=== PATIENT | male | born 1960 | race Two or more races ===

== ENCOUNTER 2016-07-02 12:24 | Observation (INO) | payer BC, OTHER ==
[2016-07-02 12:29] VITALS: BMI 29.0
--- NOTE | 2016-07-02 13:43 | EKG ---
Test Reason : Blood Pressure : / mmHG Vent. Rate : 066 BPM Atrial Rate : 066 BPM P-R Int : 192 ms QRS Dur : 094 ms QT Int : 424 ms P-R-T Axes : 004 016 035 degrees QTc Int : 444 ms NORMAL SINUS RHYTHM MINIMAL VOLTAGE CRITERIA FOR LVH, MAY BE NORMAL VARIANT EARLY REPOLARIZATION BORDERLINE ECG WHEN COMPARED WITH ECG OF 01-NOV-2010 09:51, QRS DURATION HAS DECREASED ST NO LONGER ELEVATED IN ANTERIOR LEADS T WAVE INVERSION NO LONGER EVIDENT IN ANTEROLATERAL LEADS Confirmed by BERYL MCCLELLAN, FLORA ([id number]) on 07/02/2016 1:42:58 PM Referred By: Confirmed By:FLORA CORDOBA MD
[2016-07-02 13:52] LABS: BASOPHIL 0.5 % (0-2.0); MCH 30.6 pg (25.7-33.7); MCHC 34.1 g/dl (32.0-35.9); MEAN CELL VOLUME 89.7 fl (80-96); MEAN PLT VOLUME 7.7 fl (7.5-11.1); NEUTROPHILS 73.3 % (42.8-82.8); PLATELET COUNT 175 K/MM3 (134-434); RDW 14.3 % (11.9-15.9); WHITE BLOOD COUNT 5.6 K/mm3 (4.0-10.0)
[2016-07-02 14:15] LABS: INR 1.05 (0.82-1.09); PROTHROMBIN TIME (PATIENT) 11.6 SEC (9.98-11.88)
[2016-07-02] MEDS ORDERED: SODIUM CHLORIDE 0.9% 1000 ML INFUS.BAG IV ONE (14:26)
--- NOTE | 2016-07-02 14:26 | PDOC ---
History of Present Illness - General History Source: Patient Exam Limitations: No Limitations <Tim Simpson - Last Filed: 07/02/16 16:53> <Janelle Baig - Last Filed: 07/02/16 19:20> - General Chief Complaint: Syncope/Near Syncope Stated Complaint: FALL Time Seen by Provider: 07/02/16 13:01 - History of Present Illness Initial Comments: 07/02/16 14:30 The patient is a 55 year old male, BIBA with a significant past medical history of HTN and HLD, who presents to the emergency department s/p syncopal fall around 11:30 today. The patient reports having a less than 5 minute of LOC in the bank earlier today. He reports just prior to the LOC being symptomatic for blurry vision and dizziness. He denies any recent fevers, chills, headache or dizziness. He denies any recent nausea, vomit, diarrhea or constipation. He denies any recent chest pain or shortness of breath. He arrives with no complaints of pain or discomfort. Allergies: NKA Past surgical history: None reported. Social History: Nonsmoker. Denies EtOH use and recreational drug use. (Tim Simpson) Past History <Tim Simpson - Last Filed: 07/02/16 16:53> - Past Medical History HTN: Yes Hypercholesterolemia: Yes - Psycho/Social/Smoking Cessation Hx Suicidal Ideation: No Smoking History: Never smoked <Janelle Baig - Last Filed: 07/02/16 19:20> - Past Medical History Allergies/Adverse Reactions: Allergies Allergy/AdvReac Type Severity Reaction Status Date / Time Fish Containing Products Allergy Verified 07/02/16 12:27 Home Medications: Ambulatory Orders Aspirin [ASA -] 81 mg PO DAILY 07/02/16 Isosorbide Mononitrate [Isosorbide Mononitrate ER] 120 mg PO DAILY 07/02/16 Labetalol HCl [Normodyne -] 300 mg PO BID 07/02/16 Nifedipine [Nifedipine ER] 60 mg PO BID 07/02/16 Rosuvastatin Calcium [Crestor] 40 mg PO DAILY 07/02/16 Review of Systems - Review of Systems Able to Perform ROS?: Yes <Tim Simpson - Last Filed: 07/02/16 16:53> <Janelle Baig - Last Filed: 07/02/16 19:20> - Review of Systems Comments:: 07/02/16 14:30 GENERAL/CONSTITUTIONAL: No fever or chills. No weakness. HEAD, EYES, EARS, NOSE AND THROAT: No change in vision. No ear pain or discharge. No sore throat. CARDIOVASCULAR: No chest pain or shortness of breath. RESPIRATORY: No cough, wheezing, or hemoptysis. GASTROINTESTINAL: No nausea, vomiting, diarrhea or constipation. GENITOURINARY: No dysuria, frequency, or change in urination. MUSCULOSKELETAL: No joint or muscle swelling or pain. No neck or back pain. SKIN: No rash NEUROLOGIC: No headache, vertigo, loss of consciousness, or change in strength/ sensation. ENDOCRINE: No increased thirst. No abnormal weight change. HEMATOLOGIC/LYMPHATIC: No anemia, easy bleeding, or history of blood clots. ALLERGIC/IMMUNOLOGIC: No hives or skin allergy. (Tim Simpson) *Physical Exam <Tim Simpson - Last Filed: 07/02/16 16:53> <Janelle Baig - Last Filed: 07/02/16 19:20> - Vital Signs Last Vital Signs Temp Pulse Resp BP Pulse Ox 98.9 F 91 H 17 110/75 98 07/02/16 19:00 07/02/16 19:00 07/02/16 19:00 07/02/16 19:00 07/02/16 19:00 - Physical Exam Comments: 07/02/16 16:30 GENERAL: Awake, alert, and fully oriented, in no acute distress HEAD: No signs of trauma EYES: PERRLA, EOMI, sclera anicteric, conjunctiva clear ENT: Auricles normal inspection, hearing grossly normal, nares patent, Moist mucosa NECK: Normal ROM, supple, JVD, or masses LUNGS: Breath sounds equal, clear to auscultation bilaterally. No wheezes, and no crackles HEART: Regular rate and rhythm, normal S1 and S2, no murmurs, rubs or gallops ABDOMEN: Soft, nontender, normoactive bowel sounds. No guarding, no rebound. No masses EXTREMITIES: Normal range of motion, no edema. No clubbing or cyanosis. No cords, erythema, or tenderness. 2+DP/PT pulses. NEUROLOGICAL: Normal speech, normal gait, moves all extremities equally. Speech clear. SKIN: Warm, Dry, normal turgor, no rashes or lesions noted. (Tim Simpson) ED Treatment Course - LABORATORY CBC & Chemistry Diagram: 07/02/16 13:30 07/02/16 13:30 <Tim Simpson - Last Filed: 07/02/16 16:53> - LABORATORY CBC & Chemistry Diagram: 07/02/16 13:30 07/02/16 13:30 <Janelle Baig - Last Filed: 07/02/16 19:20> - ADDITIONAL ORDERS Additional order review: Laboratory Results 07/02/16 07/02/16 13:30 13:04 INR 1.05 Sodium 140 Potassium 3.9 Chloride 102 Carbon Dioxide 26 Anion Gap 12 BUN 16 Creatinine 1.4 H Creat Clearance w eGFR 52.42 Random Glucose 112 H Calcium 9.0 Total Bilirubin 0.8 AST 22 ALT 24 Alkaline Phosphatase 54 Creatine Kinase 122 Troponin I < 0.02 Total Protein 7.2 Albumin 4.0 07/02/16 13:30 RBC 4.31 MCV 89.7 MCHC 34.1 RDW 14.3 MPV 7.7 Neutrophils % 73.3 Lymphocytes % 15.7 Monocytes % 9.5 Eosinophils % 1.0 Basophils % 0.5 - RADIOLOGY Radiology Studies Ordered: Category Date Time Status ABDOMEN CTA W/WO CONTRAST [CT] Stat CT Scan 07/02/16 18:52 Ordered CHEST CTA [CT] Stat CT Scan 07/02/16 18:[address] WITHOUT CONTRAST [CT] Stat CT Scan 07/02/16 14:19 Completed CXRPORT [CHEST X-RAY PORTABLE*] [RAD] Stat Radiology 07/02/16 14:19 Completed - Medications Given in the ED: ED Medications Discontinued Medications Generic Name Dose Route Start Last Admin Trade Name Freq PRN Reason Stop Dose Admin Aspirin 162 mg 07/02/16 14:27 07/02/16 14:33 Asa - PO 07/02/16 14:28 Not Given ONCE ONE Sodium Chloride 1,000 ml 07/02/16 14:26 07/02/16 14:32 Normal Saline - IV 07/02/16 14:27 1,000 ml ONCE ONE Administration Medical Decision Making <Tim Simpson - Last Filed: 07/02/16 16:53> <Janelle Baig - Last Filed: 07/02/16 19:20> - Medical Decision Making 07/02/16 16:53 Call made to , case discussed. (Tim Simpson) 07/02/16 14:20 55 yo male with h/o HTN HLD, here with syncopal episode today [place] the bank , on baby aspirin. unsure if hit head, brief loc for 5 min. no prior syncopal epsiodes . no cp sob precipitating. no dark stools receently. EMS brought to hospital noted to be hypotensive. no current complaints of headache. on exam awake alert neurologically intact. no head trauma. no cervical tendnerss. cardiac exam normal. differential : traumatic, Ich, hypoglycemia, dehyration anemia, vasovagal, dysrhtymia, electrlyte abnormality. plan ct head, ekg cardiac markers. tele, iv hydration labs, urinalysis. nesha d/w patients respiratory support technician 07/02/16 17:55 d/w pt covering respiratory support technician dr rubio ( dr. gutiérrez) who states pt had normal stress 04/11, echo last year was reportedly normal. also has h/o asc. aortic anuerysm. ct angio added. will see pt in hospital . will observe on telemetry. d /w dr cancino, ( admitting for felicia nolan) who accepted admission to tele. 07/02/16 19:20 (Janelle Baig) *DC/Admit/Observation/Transfer <Tim Simpson - Last Filed: 07/02/16 16:53> - Discharge Dispostion Admit: Yes <Janelle Baig - Last Filed: 07/02/16 19:20> Diagnosis at time of Disposition: Syncope - Referrals Referrals: Flavia Barker MD [Primary Care Provider] - - Attestations Scribe Attestion: 07/02/16 14:35 Documentation prepared by Tim Simpson, acting as medical records custodian for Janelle Baig MD. (Tim Simpson)
[2016-07-02] MEDS ORDERED: ASPIRIN 81 MG CHEWABLE TABLETS PO ONE (14:27)
[2016-07-02 15:03] LABS: ANION GAP 12 (8-16); CO2 26 mmol/L (21-32); GLUCOSE,RANDOM 112 mg/dL (74-106)
[2016-07-02 15:06] LABS: BILIRUBIN,TOTAL 0.8 mg/dL (0.2-1.0); COCKROFT - GAULT 68.03; CREATININE 1.4 mg/dL (0.7-1.3); SGOT/AST 22 U/L (15-37); SGPT/ALT 24 U/L (12-78); TOT PROT 7.2 g/dl (6.4-8.2)
[2016-07-02 15:09] LABS: ALK PHOS 54 U/L (45-117); TROPONIN I < 0.02 ng/ml (0.00-0.05)
--- NOTE | 2016-07-02 22:50 | HP ---
Admitting History and Physical - Admission History of Present Illness: Pt is a 55 y/o male with PMH significant for HTN and HLD. Pt was brought to the ER bc of syncopal episode w/ LOC while in the bank. Pt denies any MORA, chest pain or palpitations. The patient reports having a less than 5 minute of LOC in the bank earlier today. Pt had ct scan head wc was unremarkable and CTA chest/ abdomen wc showed dilatation of the ascending aorta w/out dissection. History Source: Patient, Medical Record - Past Medical History Cardiovascular: Yes: HTN, Hyperlipdemia - Smoking History Smoking history: Never smoked Home Medications - Allergies Allergies/Adverse Reactions: Allergies Allergy/AdvReac Type Severity Reaction Status Date / Time Fish Containing Products Allergy Verified 07/02/16 12:27 - Home Medications Home Medications: Ambulatory Orders Aspirin [ASA -] 81 mg PO DAILY 07/02/16 Isosorbide Mononitrate [Isosorbide Mononitrate ER] 120 mg PO DAILY 07/02/16 Labetalol HCl [Normodyne -] 300 mg PO BID 07/02/16 Rosuvastatin Calcium [Crestor] 40 mg PO DAILY 07/02/16 Losartan Potassium [Cozaar -] 50 mg PO DAILY #30 tablet 07/04/16 Nifedipine ER [Procardia XL -] 30 mg PO DAILY #30 tab 07/04/16 Family Disease History - Family Disease History Family History: Unremarkable Review of Systems - Review of Systems Constitutional: reports: Weakness HENT: reports: No Symptoms Neck: reports: No Symptoms Cardiovascular: reports: Other (Syncope) Respiratory: reports: No Symptoms Gastrointestinal: reports: No Symptoms Genitourinary: reports: No Symptoms Musculoskeletal: reports: No Symptoms Neurological: reports: Change in LOC Physical Examination Vital Signs: Vital Signs Temperature 98.9 F 07/02/16 19:00 Pulse Rate 94 H 07/02/16 20:43 Respiratory Rate 18 07/02/16 20:43 Blood Pressure 127/83 07/02/16 20:43 O2 Sat by Pulse Oximetry (%) 97 07/02/16 21:00 Constitutional: Yes: Well Nourished Eyes: Yes: WNL HENT: Yes: WNL Neck: Yes: WNL Cardiovascular: Yes: WNL, Regular Rate and Rhythm Respiratory: Yes: WNL, Regular, CTA Bilaterally Gastrointestinal: Yes: WNL, Normal Bowel Sounds, Soft Musculoskeletal: Yes: WNL Extremities: Yes: WNL Edema: No Neurological: Yes: WNL, Alert, Oriented ...Motor Strength: WNL Problem List - Problems (1) Syncope Assessment/Plan: Monitor on tele Cardio/neuro consults BP was slightly hypotensive Cont to monitor Check eho/carotid doppler Code(s): R55 - SYNCOPE AND COLLAPSE Qualifiers: Syncope type: unspecified Qualified Code(s): R55 - Syncope and collapse (2) HTN (hypertension) Assessment/Plan: Meidcations to be adjusted Code(s): I10 - ESSENTIAL (PRIMARY) HYPERTENSION (3) Ascending aortic aneurysm Assessment/Plan: Pt is to f/u as outpt w/ vascular surgeon Code(s): I71.2 - THORACIC AORTIC ANEURYSM, WITHOUT RUPTURE
[2016-07-03] MEDS: DEXTROSE 5%-0.45% SALINE 1,000 ML IV SCH (02:32)
[2016-07-03 06:51] LABS: BASOPHIL 0.6 % (0-2.0); EOSINOPHIL 1.5 % (0-4.5); MCH 30.9 pg (25.7-33.7); MCHC 34.6 g/dl (32.0-35.9); MEAN CELL VOLUME 89.3 fl (80-96); MEAN PLT VOLUME 7.4 fl (7.5-11.1); NEUTROPHILS 55.8 % (42.8-82.8); PLATELET COUNT 168 K/MM3 (134-434); RDW 14.2 % (11.9-15.9); WHITE BLOOD COUNT 3.7 K/mm3 (4.0-10.0)
[2016-07-03 07:26] LABS: ALBUMIN 3.7 g/dl (3.4-5.0); ANION GAP 8 (8-16); CALCIUM 8.8 mg/dL (8.5-10.1); CO2 28 mmol/L (21-32); COCKROFT - GAULT 119.06; CREATININE 0.8 mg/dL (0.7-1.3); GLUCOSE,RANDOM 115 mg/dL (74-106); SGOT/AST 17 U/L (15-37); SGPT/ALT 22 U/L (12-78); TOT PROT 6.9 g/dl (6.4-8.2)
[2016-07-03 07:27] LABS: ALK PHOS 49 U/L (45-117); BILIRUBIN,TOTAL 0.7 mg/dL (0.2-1.0)
--- NOTE | 2016-07-03 09:08 | CON.CARD ---
Consult Consult Specialty:: Cardiology Referred by:: Dr. Cole Reason for Consultation:: Syncope - History of Present Illness Chief Complaint: Syncope w/ LOC History of Present Illness: 55M with HTN, HL, CAD (+ nuclear stress w/ mild inferior ischemia several years ago managed medically), ascending aortic aneurysm 4.3 cm on CTA, moderate AR, LVH admitted after a syncopal episode in bank yesterday with reported LOC. Denies chest pain, SOB, palpitations. Reports similar episode in [place] in August-- no work up at the time. Of note, he was markedly hypotensive in ER with systolic BP in 80s. Tele: so far mild sinus tach ETTL 04/11 in office: 10:18 standard Wally, no ischemic changes. - History Source History Provided By: Patient, Medical Record Limitations to Obtaining History: No Limitations - Past Medical History [employer]: No: Alzheimer's, CVA, Dementia, Migraine, Multiple Sclerosis, Peripheral Neuropathy, Parkinson's, Seizure, Syncope, TIA, Vertigo, Other Cardio/Vascular: Yes: Aneurysm, CAD, HTN, Other (HL) Pulmonary: No: Asthma, Bronchitis, Cancer, COPD, O2 Dependent, Pneumonia, Previously Intubated, Pulmonary Embolus, Pulmonary Fibrosis, Sleep Apnea, Other Gastrointestinal: No: Ascites, Cancer, Constipation, Crohn's Disease, Diverticulitis, Diverticulosis, Esophageal Varices, Gastritis, GERD, GI Bleed, Hemorrhoids, Hiatal Hernia, Inflamatory Bowel Disease, Irritable Bowel Disease, Pancreatitis, Peptic Ulcer Disease, Ulcerative Colitis, Other Hepatobiliary: No: Cirrhosis, Cholelithiasis, Cholecystitis, Choledocholithiasis , Hepatitis A, Hepatitis B, Hepatitis C, Other Renal/: No: Renal Failure, Renal Inusuff, BPH, Cancer, Hematuria, Hemodialysis , Neurogenic Bladder, Renal Calculi, UTI, Other Heme/Onc: No: Anemia, B12 Deficiency, Bleeding Disorder, Cancer, Current Chemotherapy, Current Radiation Therapy, Hemochromatosis, Hypercoaguable State, Myeloproliferative Synd, Sickle Cell Disease, Sickle Cell Trait, Thrombocytopenia, Other Infectious Disease: No: AIDS, C-Diff, Herpes Zoster, HIV, MRSA, STD's, Tuberculosis, VREF, Other Psych: No: Addictions, Anxiety, Bipolar, Depression, Panic, Psychosis, Schizophrenia, Other Musculoskeletal: No: Bursitis, Chronic low back pain, Hemiparesis, Hemiplegia, Osteoarthritis, Paraplegia, Other Rheumatology: No: Fibromyalgia, Gout, Lupus, Rheumatoid Arthritis, Sarcoidosis, Vasculitis, Other ENT: No: Allergic Rhinitis, Sinusitis, Other Additional Medical History: 4.2/4.3 cm ascending aortic aneurysm, stable. - Alcohol/Substance Use Hx Alcohol Use: No History of Substance Use: reports: None - Smoking History Smoking history: Never smoked - Social History ADL: Independent Home Medications - Allergies Allergies/Adverse Reactions: Allergies Allergy/AdvReac Type Severity Reaction Status Date / Time Fish Containing Products Allergy Verified 07/02/16 12:27 - Home Medications Home Medications: Ambulatory Orders Aspirin [ASA -] 81 mg PO DAILY 07/02/16 Isosorbide Mononitrate [Isosorbide Mononitrate ER] 120 mg PO DAILY 07/02/16 Labetalol HCl [Normodyne -] 300 mg PO BID 07/02/16 Nifedipine [Nifedipine ER] 60 mg PO BID 07/02/16 Rosuvastatin Calcium [Crestor] 40 mg PO DAILY 07/02/16 Family Disease History - Family Disease History Family History: Unremarkable (no early CAD or SCD) Review of Systems Findings/Remarks: see HPI - Review of Systems Constitutional: reports: No Symptoms Eyes: reports: No Symptoms HENT: reports: No Symptoms Neck: reports: No Symptoms Cardiovascular: reports: No Symptoms Respiratory: reports: No Symptoms Gastrointestinal: reports: No Symptoms Genitourinary: reports: No Symptoms Breasts: reports: No Symptoms Reported Musculoskeletal: reports: No Symptoms Integumentary: reports: No Symptoms Neurological: reports: Syncope Endocrine: denies: No Symptoms, Excessive Sweating, Flushing, Increased Hunger, Increased Thirst, Intolerance to Cold, Intolerance to Heat, Unexplained Weight Gain, Unexplained Weight Loss, Other Hematology/Lymphatic: denies: No Symptoms, Easily Bruised, Excessive Bleeding, Swollen Glands, Other Psychiatric: denies: No Symptoms, Altered Sleep Pattern, Anxiety, Depression, Hallucinations, Panic, Paranoia, Suicidal, Other - Risk Factors Known Risk Factors: Yes: Hypertension Vital Signs: Vital Signs Temperature 98.2 F 07/03/16 05:25 Pulse Rate 84 07/03/16 05:25 Respiratory Rate 20 07/03/16 05:25 Blood Pressure 124/82 07/03/16 05:25 O2 Sat by Pulse Oximetry (%) 97 07/02/16 21:00 Constitutional: Yes: No Distress Eyes: Yes: Conjunctiva Clear HENT: Yes: Atraumatic Neck: Yes: Supple Respiratory: Yes: CTA Bilaterally Gastrointestinal: Yes: Soft Cardiovascular: Yes: Regular Rate and Rhythm JVD: No Carotid Bruit: No PMI: Non-Displaced Edema: No Peripheral Pulses WNL: Yes Neurological: Yes: Alert, Oriented - Other Data Labs, Other Data: CBC, BMP 07/03/16 05:35 07/03/16 05:35 INR, PTT INR 1.05 (0.82-1.09) 07/02/16 13:04 Laboratory Tests 07/02/16 07/02/16 07/03/16 13:04 13:30 05:35 WBC 3.7 L D Hgb 12.9 Plt Count 168 INR 1.05 Sodium Potassium BUN Creatinine Creatine Kinase 122 Troponin I < 0.02 07/03/16 05:35 WBC Hgb Plt Count INR Sodium 139 Potassium 3.3 L BUN 11 D Creatinine 0.8 D Creatine Kinase Troponin I NSR 73bpm, LVH Echo: Pending Ejection Fraction %: LVEF > or = 40 % Imaging - Results Cat Scan: Report Reviewed EKG: Image Reviewed Problem List - Problems (1) Syncope Assessment/Plan: -2nd episode in last year -Tele to rule out arrhythmia -Would hold Imdur and Procardia for now and observe BP (Procardia with significant vasodilatory effects) -Check orthostatics. -Echo -Carotid US Code(s): R55 - SYNCOPE AND COLLAPSE Qualifiers: Syncope type: unspecified Qualified Code(s): R55 - Syncope and collapse (2) Hypotension Assessment/Plan: -Likely due to meds (Imdur and Procardia) -Hold for now and observe BP -Can continue Labetalol with hold parameters Code(s): I95.9 - HYPOTENSION, UNSPECIFIED Qualifiers: Hypotension type: hypotension due to drug Qualified Code(s): I95.2 - Hypotension due to drugs (3) CAD (coronary artery disease) Assessment/Plan: -Most recent ETT 03/2016 with no ischemic changes -Nuclear stress several years ago with diaphragmatic attenuation, no ischemia: was managed medically due to normal EF, asymptomatic status and good exercise capacity -Will cycle cardiac enzymes -Can continue ASA Code(s): I25.10 - ATHSCL HEART DISEASE OF [place] CORONARY ARTERY W/O ANG PCTRS Qualifiers: Coronary Disease-Associated Artery/Lesion type: [place] artery [place] vs. transplanted heart: [place] heart Associated angina: without angina Qualified Code(s): I25.10 - Atherosclerotic heart disease of [place] coronary artery without angina pectoris (4) Aortic regurgitation Assessment/Plan: -moderate on previous echo -Repeat echo to assess EF and follow up on AR severity Code(s): I35.1 - NONRHEUMATIC AORTIC (VALVE) INSUFFICIENCY Qualifiers: Cardiac valve disease etiology: nonrheumatic Qualified Code(s): I35.1 - Nonrheumatic aortic (valve) insufficiency (5) Ascending aortic aneurysm Assessment/Plan: -small and stable at 4.2/4.3cm on CTA done yesterday -No dissection -Continue beta blockers as BP allows -Echo to re-assess AR severity Code(s): I71.2 - THORACIC AORTIC ANEURYSM, WITHOUT RUPTURE
[2016-07-03 09:50] LABS: CHOLESTEROL 222 mg/dL (50-200); LDL CHOLESTEROL (ONLY SJRH) 132 mg/dL (5-100)
[2016-07-03] MEDS ORDERED: NIFEdipine E.R 60 MG TABLET (UD) PO SCH (10:00)
[2016-07-03] MEDS ORDERED: ISOSORBIDE MONONITRATE 60 MG TAB.SR.24H (FP) PO SCH (10:00)
[2016-07-03 10:26] LABS: TROPONIN I < 0.02 ng/ml (0.00-0.05)
[2016-07-03] MEDS: ASPIRIN 81 MG CHEWABLE TABLETS PO SCH (10:55)
[2016-07-03] MEDS: LABETALOL HCL 100 MG TABLET (FP) PO SCH ×2 (10:55→21:29)
[2016-07-03] MEDS: HEPARIN NA (PORCINE) 5,000 UNITS/ML 1ML VIAL SQ SCH ×2 (10:55→21:29)
--- NOTE | 2016-07-03 12:44 | EKG ---
Test Reason : Blood Pressure : / mmHG Vent. Rate : 073 BPM Atrial Rate : 073 BPM P-R Int : 196 ms QRS Dur : 094 ms QT Int : 428 ms P-R-T Axes : 035 028 053 degrees QTc Int : 471 ms NORMAL SINUS RHYTHM MODERATE VOLTAGE CRITERIA FOR LVH, MAY BE NORMAL VARIANT BORDERLINE ECG WHEN COMPARED WITH ECG OF 02-JUL-2016 12:41, NO SIGNIFICANT CHANGE WAS FOUND Confirmed by FRANSISCO MCCLELLAN, MC ([id number]) on 07/03/2016 12:44:00 PM Referred By: Confirmed By:MC MOODY MD
--- NOTE | 2016-07-03 20:15 | PN ---
Progress Note, Physician - Current Medication List Current Medications: Active Medications Aspirin (Asa -) 81 mg PO DAILY [facility] Last Admin: 07/03/16 10:55 Dose: 81 mg Heparin Sodium (Porcine) (Heparin -) 5,000 unit SQ BID [facility] Last Admin: 07/03/16 10:55 Dose: 5,000 unit Dextrose/Sodium Chloride (D5-1/2ns -) 1,000 mls @ 75 mls/hr IV ASDIR [facility] Last Admin: 07/03/16 02:32 Dose: 75 mls/hr Labetalol HCl (Normodyne -) 300 mg PO BID [facility] Last Admin: 07/03/16 10:55 Dose: 300 mg Rosuvastatin Calcium (Crestor -) 40 mg PO HS [facility] - Objective Vital Signs: Vital Signs Temperature 98.6 F 07/03/16 17:00 Pulse Rate 80 07/03/16 17:00 Respiratory Rate 20 07/03/16 17:00 Blood Pressure 158/108 07/03/16 17:00 O2 Sat by Pulse Oximetry (%) 97 07/03/16 09:10 Constitutional: Yes: Well Nourished Eyes: Yes: WNL HENT: Yes: WNL Neck: Yes: Supple Cardiovascular: Yes: WNL, Regular Rate and Rhythm Respiratory: Yes: WNL, Regular, CTA Bilaterally Gastrointestinal: Yes: WNL, Normal Bowel Sounds, Soft Labs: CBC, BMP 07/03/16 05:35 07/03/16 05:35 INR, PTT INR 1.05 (0.82-1.09) 07/02/16 13:04 Assessment/Plan 1. Syncope Cont tele Probable due to orthostatic changes vs dehydration Await echo DC planning for am 2. HTN/HLD lipid panel slightly elevated BP improved Cont labetalol/asa Cont crestor
--- NOTE | 2016-07-03 21:05 | CONSULT ---
Consult - text type - Consultation Consultation Note: NEUROLOGY CONSULTATION is greatly appreciated: This 55 yo RH man is examined with his present who aides in translation. PMH sig for HTN, Chol, ASHD, s/p IWMI, Ascending aortic aneurysm. Maintained on Isordil (120 mg), Labetolol (300 mg BID), Nifedipine and Crestor. Yesterday AM, after taking all meds, went to the bank where he was standing in line and became lightheaded and suffered witnessed LOC x approx 5 mins. No seizure activity, diaphoresis, incontinence or tongue biting. No head injury or headache. EMS described hypotension with Systolic BP of [address] of head (Reviewed): Entirely normal. Carotid duplex dopplers: Normal EXAM: No evidence of external head trauma. No carotid bruits. Cor: 60's reg NEURO: MS/Speech: Normal CN II-XII: Normal without nystagmus Motor: No drift or tremor. Normal strength, tone and bulk. Toes downgoing Coord: No FTN dystaxia Sensory: Normal. Romberg - Gait: Normal IMP: Normal neurological exam. Syncope. Probably due to meds plus orthostatic factors. R/O arrythmia. Suggest: Agree with telemetry May even consider more prolonged ambulatory monitoring as out patient. Check orthostatic BP's. Keep well-hydrated. Cardiology follow-up as out patient. Thank you very much, [place] MD
[2016-07-03] MEDS ORDERED: PT OWN MED DRAWER 7, Y5N ONE (21:13)
[2016-07-03] MEDS ORDERED: ROSUVASTATIN CA 40 MG TABLET PO SCH (22:00)
[2016-07-04] MEDS ORDERED: ROSUVASTATIN CA 20 MG TABLET (FP) PO SCH (01:19)
[2016-07-04] MEDS: DEXTROSE 5%-0.45% SALINE 1,000 ML IV SCH (01:50)
[2016-07-04] MEDS ORDERED: NIFEdipine E.R. 30 MG TABLET (FP) PO ONE (07:00)
[2016-07-04] MEDS: LABETALOL HCL 100 MG TABLET (FP) PO SCH ×2 (07:29→09:37)
[2016-07-04 08:19] LABS: ANION GAP 12 (8-16); BILIRUBIN,TOTAL 0.8 mg/dL (0.2-1.0); CALCIUM 9.1 mg/dL (8.5-10.1); CO2 28 mmol/L (21-32); COCKROFT - GAULT 105.83; CREATININE 0.9 mg/dL (0.7-1.3); GLUCOSE,RANDOM 89 mg/dL (74-106); SGOT/AST 20 U/L (15-37); SGPT/ALT 26 U/L (12-78); TOT PROT 7.2 g/dl (6.4-8.2)
[2016-07-04 08:23] LABS: ALK PHOS 53 U/L (45-117)
[2016-07-04 09:02] VITALS: BP 144/90; TEMP 98.8
--- NOTE | 2016-07-04 09:10 | PN ---
Progress Note, Physician History of Present Illness: seen and examined today in [facility]. no overnight events. no new complaints. feeling better. - Current Medication List Current Medications: Active Medications Aspirin (Asa -) 81 mg PO DAILY [facility] Last Admin: 07/03/16 10:55 Dose: 81 mg Heparin Sodium (Porcine) (Heparin -) 5,000 unit SQ BID [facility] Last Admin: 07/03/16 21:29 Dose: 5,000 unit Dextrose/Sodium Chloride (D5-1/2ns -) 1,000 mls @ 75 mls/hr IV ASDIR [facility] Last Admin: 07/04/16 01:50 Dose: 75 mls/hr Labetalol HCl (Normodyne -) 300 mg PO BID [facility] Last Admin: 07/04/16 07:29 Dose: 300 mg Rosuvastatin Calcium (Crestor -) 40 mg PO HS [facility] - Objective Vital Signs: Vital Signs Temperature 98.8 F 07/04/16 09:00 Pulse Rate 62 07/04/16 09:00 Respiratory Rate 20 07/04/16 09:00 Blood Pressure 144/90 07/04/16 09:00 O2 Sat by Pulse Oximetry (%) 97 07/04/16 01:00 Constitutional: Yes: Well Nourished, No Distress, Calm Eyes: Yes: WNL, Conjunctiva Clear, EOM Intact, PERRL HENT: Yes: WNL, Atraumatic, Normocephalic Neck: Yes: WNL, Supple, Trachea Midline Cardiovascular: Yes: WNL, Regular Rate and Rhythm, S1, S2. No: Bradycardia, Tachycardia, Pulse Irregular, Bruit, JVD, Gallop, Murmur, Rub, S3, S4, Varicosities Respiratory: Yes: WNL, Regular, CTA Bilaterally. No: Rales, Rhonchi, Wheezes Gastrointestinal: Yes: WNL, Normal Bowel Sounds, Soft. No: Distention, Tenderness Musculoskeletal: Yes: WNL Extremities: Yes: WNL Edema: No Peripheral Pulses WNL: Yes Peripheral Pulses: Left Doralis Pedis: 2+, Right Dorsalis Pedis: 2+ Integumentary: Yes: WNL Neurological: Yes: WNL, Alert, Oriented, Cran Nerves II-XII Intact ...Motor Strength: WNL Psychiatric: Yes: WNL, Alert, Oriented Labs: CBC, BMP 07/03/16 05:35 07/04/16 05:40 INR, PTT INR 1.05 (0.82-1.09) 07/02/16 13:04 - ....Imaging Chest X-ray: Report Reviewed, Image Reviewed EKG: Report Reviewed, Image Reviewed Other: Report Reviewed, Image Reviewed (tele-sinus bradycardia 40-50s, nsr, pvcs , apcs, sinus tach vs psvt initially on admission) Assessment/Plan 55 year old man with a history of HTN, HLD, ascending aortic aneursym, CAD based on stress test years ago admitted with syncope and associated hypotension. Syncope-likely due to orthostatic hypotension in the setting of multiple anti- HTN medications, 2 episodes in past year -echo showed normal LV/RV size and function, trace valvular regurgitation -carotid doppler showed minimal plaque with no stenosis -CTA chest showed mild asc aortic aneurysm with no dissection -tele has showed sinus tach, sinus bradycardia, pvcs, apcs, no sig arrhythmia that would account for syncope -pt is acceptable for discharge from a cardiac standpoint with a plan for close outpatient follow up with his environmental science instructor Dr. Flavia Barker next -will plan for likely longer term event monitor as outpatient vs loop recorder -would check orthostatic BP prior to admission HTN-hypotensive on admission, suspect medication non-adherence in past with resumption of all meds at once on day prior to admission -cont Labetalol -will resume nifedipine xl at 30mg daily for now -stop Imdur Aortic regurgitation-moderate on outpatient echo, not seen on echo here -f/up as outpatient Thoracic aortic aneurysm-mild and stable with no dissection -cont bblocker and HTN control -outpatient f/up CAD-stable -outpatient f/up
[2016-07-04] MEDS ORDERED: LOSARTAN POTASSIUM 50 MG TABLET (FP) PO SCH (10:00)
[2016-07-04] MEDS ORDERED: NIFEdipine E.R. 30 MG TABLET (FP) PO SCH (10:00)
[2016-07-04] MEDS: ASPIRIN 81 MG CHEWABLE TABLETS PO SCH (10:02)
[2016-07-04] MEDS: HEPARIN NA (PORCINE) 5,000 UNITS/ML 1ML VIAL SQ SCH (10:02)
[2016-07-04 12:49] VITALS: PULSE 60
[2016-07-05] MEDS ORDERED: NIFEdipine E.R. 30 MG TABLET (FP) PO SCH (10:00)
--- NOTE | 2016-07-05 16:02 | DS ---
Physical Examination Vital Signs: Vital Signs Temperature 98.8 F 07/04/16 09:00 Pulse Rate 60 07/04/16 09:00 Respiratory Rate 20 07/04/16 09:00 Blood Pressure 144/90 07/04/16 09:00 O2 Sat by Pulse Oximetry (%) 98 07/04/16 09:00 Constitutional: Yes: No Distress HENT: Yes: WNL Neck: Yes: WNL Cardiovascular: Yes: WNL, Regular Rate and Rhythm Respiratory: Yes: WNL, Regular, CTA Bilaterally Gastrointestinal: Yes: WNL Labs: CBC, BMP 07/03/16 05:35 07/04/16 05:40 Discharge Summary Reason For Visit: SYNCOPE Syncope AAA HTN Hospital Course: Pt is a 56 y/o male who was admitted to [facility] w/ syncope. Pt had ct scan head wc was unremarkable and also had cta chest/abdomen wc showed AAA but no disection. Pt was seen by neuro/cardio and it was felt that syncope could have been due to orthostatic changes Condition: Fair - Instructions Diet, Activity, Other Instructions: 2 gram sodium diet Referrals: Flavia Barker MD [Primary Care Provider] - Disposition: HOME - Home Medications Comprehensive Discharge Medication List: Ambulatory Orders Aspirin [ASA -] 81 mg PO DAILY 07/02/16 Isosorbide Mononitrate [Isosorbide Mononitrate ER] 120 mg PO DAILY 07/02/16 Labetalol HCl [Normodyne -] 300 mg PO BID 07/02/16 Rosuvastatin Calcium [Crestor] 40 mg PO DAILY 07/02/16 Losartan Potassium [Cozaar -] 50 mg PO DAILY #30 tablet 07/04/16 Nifedipine ER [Procardia XL -] 30 mg PO DAILY #30 tab 07/04/16
== END 2016-07-04 14:42 | disposition home or self-care (01) ==
LOC: JER 12:24 → JERBED 19:21 → J4W 21:03
PROVIDERS: ADMIT Internal Medicine; ATTEND Internal Medicine
PROC: 3E0337Z Introduction of Electrolytic and Water Balance Substance into Peripheral Vein, Percutaneous Approach (ICD-10-PCS; principal; 2016-07-02)
PROC: 3E033GC Introduction of Other Therapeutic Substance into Peripheral Vein, Percutaneous Approach (ICD-10-PCS; 2016-07-02)
DX: R55 Syncope and collapse (principal); I10 Essential (primary) hypertension; E78.5 Hyperlipidemia, unspecified; Z91.013 Allergy to seafood; Z79.82 Long term (current) use of aspirin; I71.2 Thoracic aortic aneurysm, without rupture; I25.10 Atherosclerotic heart disease of native coronary artery without angina pectoris; I95.2 Hypotension due to drugs; I35.1 Nonrheumatic aortic (valve) insufficiency
CPT/HCPCS: 36415; 70450-TC; 71010-TC; 71275-TC; 74175-TC; 80053; 80061; 82550; 83036; 83721; 84484; 85025; 85610; 93005; 93010; 93306-TC; 93880-TC; 99285-25; G0378; J1644; Q9967

== ENCOUNTER 2020-03-10 15:01 | Emergency (ER) | payer BC ==
[2020-03-10] MEDS ORDERED: CASIRIVIMAB (REGN10933) 1,200 MG, IMDEVIMAB (REGN10987) 1,200 MG in SODIUM CHLORIDE 230 ML IVPB ONE (15:24)
[2020-03-10 15:25] VITALS: BMI 25.8
[2020-03-10 16:03] LABS: HEMATOCRIT 35.3 % (35.4-49); HEMOGLOBIN 12.4 GM/dL (11.7-16.9); MCH 30.7 pg (25.7-33.7); MEAN CELL VOLUME 87.8 fl (80-96); PLATELET COUNT 175 K/MM3 (134-434); RBC 4.03 M/mm3 (4.00-5.60); RDW 13.6 % (11.9-15.9); WHITE BLOOD COUNT 6.1 K/mm3 (4.0-10.0)
[2020-03-10 16:27] LABS: POTASSIUM 3.9 mmol/L (3.5-5.1)
[2020-03-10 16:29] LABS: BLOOD UREA NITROGEN 24.2 mg/dL (7-18); CALCIUM 8.4 mg/dL (8.5-10.1)
[2020-03-10 16:32] LABS: CREATININE 1.2 mg/dL (0.55-1.3)
[2020-03-10 18:33] VITALS: TEMP 98
[2020-03-10 20:00] VITALS: BP 115/78; PULSE 91
== END 2020-03-10 20:07 | disposition home or self-care (01) ==
LOC: JER 15:01
DX: U07.1 COVID-19 (principal)
CPT/HCPCS: 36415; 80048; 85027; 99284-25; M0243; Q0243